=== PATIENT | male | born 2000 | race Caucasian/White ===

== ENCOUNTER 2021-11-23 17:45 | Inpatient (IN) | payer BC ==
[~2021-11-23] VITALS: Ht 185.4 cm; Wt 90.7 kg
[2021-11-23 17:48] VITALS: BP_SYST 130
--- NOTE | 2021-11-23 18:15 | NUR ---
Pt bib parent to ED, CC sharp upper abdominal pain R/t constipation last bm scant one hour ago. Pt is nauseated with 4 episodes of vomiting. No signs trauma, aaox4 skin even and unlabored. NAD.
[2021-11-23] MEDS ORDERED: ONDANSETRON HCL 4 MG/2 ML VIAL IVP ONE ×2 (18:45→20:00)
[2021-11-23] MEDS ORDERED: MORPHINE 2 MG/ML INJ. SYRINGE IVP ONE (18:45)
--- NOTE | 2021-11-23 18:45 | NUR ---
ER at bedside examining patient.
--- NOTE | 2021-11-23 18:50 | NUR ---
Patient transported to radiology for ultra sound via wc, accompanied by textile science technician.
[2021-11-23 19:11] LABS: BILIRUBIN,URINE NEGATIVE (NEGATIVE); BLOOD, URINE NEGATIVE (NEGATIVE); CLARITY/URINE CLEAR (CLEAR); COLOR,URINE YELLOW (YELLOW); GLUCOSE,URINE NEGATIVE (NEGATIVE); KETONES,URINE 1+ (NEGATIVE); LEUKOCYTE ESTERASE ,URINE NEGATIVE (NEGATIVE); NITRITE, URINE NEGATIVE (NEGATIVE); PH,URINE 6.5 (5.0-8.0); PROTEIN URINE 1+ (NEGATIVE); UROBILINOGEN,URINE 0.2 (0.2-1.0)
--- NOTE | 2021-11-23 19:21 | NUR ---
Pt returned from radiology nad, pain level 7/10 Morphine mildly effective.
--- NOTE | 2021-11-23 19:23 | NUR ---
RECIEVED REPORT FROM LOGAN TAPIA WILL ASSUME ALL CARE OF PATIENT AT THIS TIME
--- NOTE | 2021-11-23 19:23 | NUR ---
Endorsed pt care to YOBANY Veloz. Pt resting in hallway with a blanket.
[2021-11-23 19:34] LABS: BACTERIA,URINE FEW /HPF (None Seen); WBC,URINE 0-3 /HPF (0-3)
[2021-11-23 19:42] LABS: ALBUMIN 4.4 g/dL (3.4-4.8); CALCIUM 8.8 mg/dL (8.4-11.0); CREATININE 0.94 mg/dL (0.55-1.30); POTASSIUM 4.1 mmol/L (3.5-5.1); TOTAL BILIRUBIN 0.7 mg/dL (0.0-1.0)
[2021-11-23 19:46] LABS: BARBITURATE, URINE NEGATIVE (NEG <=200); BENZODIAZEPINE, URINE NEGATIVE (NEG <=150); CANNABINOID, URINE NEGATIVE (NEG <=50); COCAINE, URINE NEGATIVE (NEG <=150); METHAMPHETAMINES SCREEN,URINE NEGATIVE (NEG <=500); OPIATE, URINE NEGATIVE (NEG <=100); PHENCYCLIDINE SCREEN,URINE NEGATIVE (NEG <=25); UR TRICYCLIC ANTIDEPRESSANTS NEGATIVE (NEG <=300); URINE AMPHETAMINE NEGATIVE (NEG <=500); URINE METHADONE NEGATIVE (NEG <=200); URINE OXYCODONE SCREEN NEGATIVE (NEG <=100); URINE PROPOXYPHENE SCREEN NEGATIVE (NEG <=300)
[2021-11-23] MEDS ORDERED: MORPHINE 4 MG INJ. 4 MG/ML VIAL IVP ONE (20:00)
[2021-11-23] MEDS ORDERED: NACL 0.9% 1,000 ML IV ONE (20:00)
[2021-11-23] MEDS ORDERED: cefTRIAXone 1 GM IVPB PREMIX 50 ML IV ONE (20:00)
[2021-11-23 20:06] LABS: BASOPHILS # (AUTO) 0.1 K/uL (0.0-0.2); BASOPHILS % (AUTO) 0.4 % (0.0-2.0); HEMATOCRIT 44.9 % (36-54); LYMPHOCYTES % (AUTO) 5.4 % (20.5-51.5); MEAN CORPUSCULAR HEMOGLOBIN 29 pg (27-31); MEAN CORPUSCULAR HGB CONC 33 % (32-36); MEAN CORPUSCULAR VOLUME 88 fL (79.0-98.0); MONOCYTES % (AUTO) 5.1 % (1.7-9.3); NEUTROPHILS # (AUTO) 16.7 K/uL (1.8-7.7); NEUTROPHILS % (AUTO) 89.1 % (40.0-70.0); PLATELET COUNT (AUTO) 210 K/uL (130-430); RED BLOOD CELL COUNT(AUTO) 5.13 MIL/uL (4.2-6.2); RED CELL DISTRIBUTION WIDTH 13.6 % (9.0-15.0); WHITE BLOOD COUNT (AUTO) 18.7 K/uL (4.8-10.8)
--- NOTE | 2021-11-23 20:40 | NUR ---
Dr. Dodson on phone with Dr. Gaona regarding sx.
[2021-11-23] MEDS ORDERED: DOCUSATE SODIUM 100 MG/10 ML UDC PO PRN (21:15)
[2021-11-23] MEDS ORDERED: ZOLPIDEM TARTRATE 5 MG TABLET PO PRN (21:15)
[2021-11-23] MEDS ORDERED: MORPHINE 2 MG/ML INJ. SYRINGE IVP PRN (21:15)
[2021-11-23] MEDS: D5NS 1,000 ML IV SCH (21:15)
[2021-11-23] MEDS ORDERED: HYDROcodone/ACETAMIN 7.5-325 MG TAB PO PRN (21:15)
[2021-11-23] MEDS ORDERED: guaiFENesin/DEXTROMETHORPHAN 10 ML UDC PO PRN (21:15)
--- NOTE | 2021-11-23 21:35 | NUR ---
Admit bed requested Patient will be admitted to care of Dr. Healy. Admitted to med surg unit. Diagnosis appendicitis Inpatient (Yes or No) yes Observation (Yes or No) no Orientation concerns or request close to nursing station (Yes or No) no Covid Status neg On vent or bipap no Isolation requirements no Needs a sitter no From Home (Yes or if No enter name of facility) yes Requires Dialysis (Yes or No) no Med Rec Completed (Yes of No) yes
--- NOTE | 2021-11-23 22:57 | NUR ---
Patient will be admitted to care of dr. neal. [facility] Will go to room 117b. Complete and up to date summary report printed. Transfer to [facility]. IV present no sign or symptom of infiltration.
[2021-11-23 23:23] LABS: INR 1.1 (0.80-1.20)
[2021-11-23 23:57] LABS: FREE T4 (FREE THYROXINE) 1.2 ng/dl (0.8-1.5); PHOSPHORUS 3.3 mg/dL (2.7-4.5); THYROID STIMULATING HORMONE 0.99 uIu/mL (0.36-3.74)
[2021-11-24] MEDS: MORPHINE 4 MG INJ. 4 MG/ML VIAL IVP PRN ×3 (01:42→21:09)
[2021-11-24 03:29] VITALS: BP_SYST 130
--- NOTE | 2021-11-24 03:48 | NUR ---
PT ARRIVED ON UNIT FROM ED. PT VSS. PT DENIED PAIN UPON ARRIVAL BUT LATER C/O ABDOMINAL PAIN MORPHINE 3MG PRN GIVEN WITH POSITIVE EFFECT. PT IS NPO UNTIL MD SEE AND EVALUATE PT. PT CONTINUE ON IV MAINTENANCE AND PRN MORPHINE. PATIENT SHOWS NO SIGNS OF RESPIRATORY DISTRESS. PT SLEEPING AND MOTHER SPENDING NIGHT WITH PATIENT.
[2021-11-24 03:53] VITALS: BP_SYST 130
--- NOTE | 2021-11-24 04:21 | NUR ---
CONSULTATION PAGED/CALLED Reason for Consultation: APPENDITIS Person Who was Notified VY Consulting Physician: NANDO YOO Gas Fitter Specialty: Ordering Physician: ALIZE
[2021-11-24] MEDS: D5NS 1,000 ML IV SCH ×3 (06:29→21:08)
[2021-11-24 06:39] LABS: HEMATOCRIT 40.4 % (36-54); HEMOGLOBIN 14.1 g/dL (14.0-18.0); MEAN CORPUSCULAR HEMOGLOBIN 30 pg (27-31); MEAN CORPUSCULAR HGB CONC 35 % (32-36); MEAN CORPUSCULAR VOLUME 86 fL (79.0-98.0); PLATELET COUNT (AUTO) 193 K/uL (130-430); RED BLOOD CELL COUNT(AUTO) 4.69 MIL/uL (4.2-6.2); RED CELL DISTRIBUTION WIDTH 13.7 % (9.0-15.0); WHITE BLOOD COUNT (AUTO) 19.5 K/uL (4.8-10.8)
[2021-11-24 06:56] LABS: CALCIUM 8.9 mg/dL (8.4-11.0); CREATININE 0.87 mg/dL (0.55-1.30); POTASSIUM 3.7 mmol/L (3.5-5.1)
--- NOTE | 2021-11-24 07:24 | NUR ---
OPENING NOTE RECEIVED
--- NOTE | 2021-11-24 07:30 | NUR ---
OPENING NOTES KEPT NPO FOR POSSIBLE SURGERY TODAY. WAITING (SURGEON) TO SEE PT. IV FLUIDS AND ANTIBIOTICS. DENIES ABDOMINAL PAIN AT THIS TIME. ENCOURAGED PT TO CALL FOR HELP.
[2021-11-24 08:00] VITALS: BP_SYST 126
[2021-11-24 08:12] LABS: LYMPHOCYTES % (MANUAL) 6 % (20-46)
[2021-11-24 08:13] LABS: BASOPHILS % (MANUAL) 1 % (0-2); EOSINOPHILS % (MANUAL) 1 % (0-7); MONOCYTES % (MANUAL) 8 % (0-11)
[2021-11-24] MEDS: PANTOPRAZOLE SODIUM 40 MG TAB PO SCH (08:30)
[2021-11-24] MEDS: ONDANSETRON HCL 4 MG/2 ML VIAL IVP PRN (08:30)
[2021-11-24] MEDS ORDERED: POTASSIUM CHLORIDE 20 MEQ TAB.PRT.SR PO PRN (09:00)
--- NOTE | 2021-11-24 09:30 | NUR ---
MD FERNANDES CAME TO SEE PT WITH NEW IV ANTIBIOTIC ORDER.
[2021-11-24] MEDS: CLINDAMYCIN 900 MG in NS 50 ML IV SCH ×3 (10:37→21:09)
[2021-11-24 12:00] VITALS: BP_SYST 134
--- NOTE | 2021-11-24 12:44 | NUR ---
MD ESPINAL AT BEDSIDE ASSESSING PT.
[2021-11-24 16:00] VITALS: BP_SYST 131
--- NOTE | 2021-11-24 18:24 | NUR ---
CLOSING NOTE PT CONTINUALLY KEPT NPO WAITING FOR SURGEON TO SCHEDULE THE SURGERY DATE. FAMILY AT BEDSIDE THROUGHOUT THE SHIFT. CONTINUE IV ANTIBIOTICS. PROVIDED PAIN MANAGEMENT X1 WITH EFFECTIVE RESULT.
[2021-11-24 19:50] VITALS: BP_SYST 129
--- NOTE | 2021-11-24 19:50 | NUR ---
Opening notes Pt AAOx4, VSS, pt states pain is tolerable at this time. Pt maintained NPO. IVF infusing at ordered rate L. AC20G clear and patent. Call light within reach. Family at bedside. Awaiting order for surgery. To monitor.
[2021-11-24] MEDS ORDERED: cefTRIAXone 1 GM VIAL ONE (21:01)
[2021-11-24] MEDS: cefTRIAXone 1 GM in D5W 50 ML IV SCH (22:15)
[2021-11-25 00:20] VITALS: BP_SYST 146
[2021-11-25] MEDS: MORPHINE 4 MG INJ. 4 MG/ML VIAL IVP PRN ×2 (00:24→03:40)
--- NOTE | 2021-11-25 00:50 | NUR ---
Consent signed Pt alert, awake, and signed consent. Maintained NPO. Family member at bedside and informed that Charge nurse verified with House sup the time of surgery is 0730AM for Lap appy possible open.
[2021-11-25] MEDS: D5NS 1,000 ML IV SCH ×3 (02:55→16:52)
[2021-11-25] MEDS: CLINDAMYCIN 900 MG in NS 50 ML IV SCH ×3 (05:52→21:09)
--- NOTE | 2021-11-25 06:35 | NUR ---
Closing notes Pt alert, awake, no s/s distress noted. VSS. Pt had CHG bath. IVF infusing at ordered rate L. AC 20G and IV antibiotics administered. Family at bedside. Safety maintained. To endorse to AM nurse.
[2021-11-25 06:40] LABS: HEMATOCRIT 41.4 % (36-54); HEMOGLOBIN 14.3 g/dL (14.0-18.0); MEAN CORPUSCULAR HEMOGLOBIN 30 pg (27-31); MEAN CORPUSCULAR HGB CONC 35 % (32-36); MEAN CORPUSCULAR VOLUME 87 fL (79.0-98.0); PLATELET COUNT (AUTO) 182 K/uL (130-430); RED BLOOD CELL COUNT(AUTO) 4.76 MIL/uL (4.2-6.2); RED CELL DISTRIBUTION WIDTH 13.8 % (9.0-15.0); WHITE BLOOD COUNT (AUTO) 18.7 K/uL (4.8-10.8)
[2021-11-25 07:01] LABS: CALCIUM 8.8 mg/dL (8.4-11.0); CREATININE 1.15 mg/dL (0.55-1.30); POTASSIUM 4.1 mmol/L (3.5-5.1)
[2021-11-25] MEDS ORDERED: ePHEDrine sulfate 50 MG/ML VIAL ONE (07:20)
[2021-11-25] MEDS ORDERED: MIDAZOLAM HCL 2 MG/2 ML VIAL (VERSED) ONE (07:20)
[2021-11-25] MEDS ORDERED: HYDROmorphone 2 MG/ML VIAL ONE (07:20)
[2021-11-25] MEDS ORDERED: SEVOFLURANE 15 MIN GAS INH ONE (07:20)
[2021-11-25] MEDS ORDERED: ONDANSETRON HCL 4 MG/2 ML VIAL ONE (07:20)
[2021-11-25] MEDS ORDERED: ROCURONIUM BROMIDE 10 MG/ML (ZEMURON) ONE (07:20)
[2021-11-25] MEDS ORDERED: DEXAMETHASONE SOD PHOSPHATE 4 MG/ML VIAL ONE (07:20)
[2021-11-25] MEDS ORDERED: BUPIVACAINE /PF 0.25% 30 ML VIAL INJ ONE (07:20)
[2021-11-25] MEDS ORDERED: LIDOCAINE/EPI MPF 1%1:200000 30 ML VIAL ONE (07:20)
[2021-11-25] MEDS ORDERED: LR 1,000 ML IV.SOLN IV ONE (07:20)
[2021-11-25] MEDS ORDERED: SUGAMMADEX SODIUM 200 MG/2 ML VIAL IV ONE (07:20)
[2021-11-25] MEDS ORDERED: PROPOFOL 200MG/ 20ML VIAL (DIPRIVAN) IV ONE (07:20)
[2021-11-25] MEDS ORDERED: METOCLOPRAMIDE HCL 10 MG/2 ML VIAL ONE (07:20)
[2021-11-25] MEDS ORDERED: NS IRRIG SOLN 1000 ML IR ONE (07:20)
--- NOTE | 2021-11-25 07:20 | NUR ---
OR nurses here to pickle pumper pt for surgery.
[2021-11-25 07:45] LABS: EOSINOPHILS % (MANUAL) 1 % (0-7); LYMPHOCYTES % (MANUAL) 7 % (20-46)
[2021-11-25] MEDS ORDERED: HYDROmorphone 1 MG/ML INJ. CARTRIDGE IM PRN (07:45)
[2021-11-25 08:00] VITALS: BP_SYST 124
[2021-11-25 08:23] LABS: ATYPICAL LYMPHOCYTES % 0 % (0-0); BASOPHILS % (MANUAL) 1 % (0-2); MONOCYTES % (MANUAL) 8 % (0-11)
[2021-11-25] MEDS ORDERED: HYDROmorphone 2 MG/ML VIAL IVP PRN (08:30)
[2021-11-25] MEDS ORDERED: METOCLOPRAMIDE HCL 10 MG/2 ML VIAL IVP PRN (08:30)
[2021-11-25] MEDS ORDERED: ONDANSETRON HCL 4 MG/2 ML VIAL IVP PRN (08:30)
[2021-11-25] MEDS ORDERED: HYDROmorphone 1 MG/ML INJ. CARTRIDGE IVP PRN ×3 (08:30→16:00)
[2021-11-25] MEDS ORDERED: NALOXONE HCL 0.4 MG/ML AMP (NARCAN) IVP PRN ×2 (08:30)
[2021-11-25] MEDS: PANTOPRAZOLE SODIUM 40 MG TAB PO SCH (09:00)
[2021-11-25 16:00] VITALS: BP_SYST 120
[2021-11-25 19:50] VITALS: BP_SYST 118
--- NOTE | 2021-11-25 19:50 | NUR ---
PM ASSESSMENT; -Pt is a/ox4, resting in bed comfortably. Pt denies any chest pain,sob,or any acute distress. S/P lap append with x3 puncture sites w/ duobond, no bleeding noted. IV site of LAC patent,no s/s any infiltration noted. IVF D5NS @ 135ml/hr. Discussed poc,all safety measures, pain mgmt, and inform nurse if experiencing any pain or any acute distress, pt verbalized understanding. Girlfriend is at bedside. Call light w/in reach, side rails x2. Cont to monitor pt.
[2021-11-25] MEDS ORDERED: cefTRIAXone 1 GM IVPB PREMIX 50 ML IV ONE (20:50)
[2021-11-25] MEDS: cefTRIAXone 1 GM in D5W 50 ML IV SCH (21:07)
--- NOTE | 2021-11-25 21:07 | NUR ---
ROUNDS; -Pt is resting in bed comfortably. Pt denies any chest pain,pain,sob, or any acute distress. Mother and girlfriend are at bedside. All safety measures in place. Call light w/in reach. Cont to monitor pt.
[2021-11-26 00:12] VITALS: BP_SYST 114
[2021-11-26] MEDS: ACETAMINOPHEN 500 MG TABLET PO PRN ×2 (00:12→23:53)
--- NOTE | 2021-11-26 00:12 | NUR ---
ROUNDS; -Pt is c/o abd pain, gave Tylenol 500mg po. Pt is c/o constipation but refused to receive medication this time. IVF infusing well. Will reassess pain level w/in an hour. Girlfriend is at bedside. All safety measures in place. Call light w/in reach. Cont to monitor pt.
--- NOTE | 2021-11-26 02:10 | NUR ---
ROUNDS; -Pt requested Ambien po for sleeping. Pt denies any chest pain,sob,or any acute distress. Girlfriend is at bedside. Call light w/in reach. Cont to monitor pt.
[2021-11-26] MEDS: CLINDAMYCIN 900 MG in NS 50 ML IV SCH ×3 (05:27→22:51)
[2021-11-26] MEDS: D5NS 1,000 ML IV SCH ×4 (05:27→23:56)
--- NOTE | 2021-11-26 05:27 | NUR ---
ROUNDS; -Pt is still asleep,easily awakes upon making rounds. Pt denies any chest pain,sob,or any acute distress.IVF infusing well, Cleocin IVPB given. No girlfriend or family is at bedside. Call light w/in reach. Cont to monitor pt.
--- NOTE | 2021-11-26 06:32 | NUR ---
CLOSING NOTES; Pt is resting in bed comfortably. S/P lap append with x3 puncture sites w/ duobond, no bleeding noted. IV site of LAC patent,no s/s any infiltration noted. IVF D5NS @ 135ml/hr. No visitor is at bedside. Call light w/in reach, side rails x2. Will endorse to next nurse to cont care.
[2021-11-26 06:54] LABS: BASOPHILS # (AUTO) 0.1 K/uL (0.0-0.2); BASOPHILS % (AUTO) 0.3 % (0.0-2.0); HEMATOCRIT 36.5 % (36-54); HEMOGLOBIN 12.9 g/dL (14.0-18.0); LYMPHOCYTES # (AUTO) 1.4 K/uL (1.0-5.5); LYMPHOCYTES % (AUTO) 9.1 % (20.5-51.5); MEAN CORPUSCULAR HEMOGLOBIN 30 pg (27-31); MEAN CORPUSCULAR HGB CONC 35 % (32-36); MEAN CORPUSCULAR VOLUME 86 fL (79.0-98.0); MONOCYTES # (AUTO) 1.4 K/uL (0.0-1.0); MONOCYTES % (AUTO) 9.3 % (1.7-9.3); NEUTROPHILS # (AUTO) 12.6 K/uL (1.8-7.7); NEUTROPHILS % (AUTO) 81.3 % (40.0-70.0); PLATELET COUNT (AUTO) 162 K/uL (130-430); RED BLOOD CELL COUNT(AUTO) 4.23 MIL/uL (4.2-6.2); RED CELL DISTRIBUTION WIDTH 13.6 % (9.0-15.0); WHITE BLOOD COUNT (AUTO) 15.5 K/uL (4.8-10.8)
[2021-11-26 07:00] VITALS: BP_SYST 124
[2021-11-26 07:59] LABS: CALCIUM 8.5 mg/dL (8.4-11.0); CREATININE 0.89 mg/dL (0.55-1.30)
[2021-11-26 08:00] VITALS: BP_SYST 124
[2021-11-26] MEDS: PANTOPRAZOLE SODIUM 40 MG TAB PO SCH (09:18)
[2021-11-26] MEDS ORDERED: LEVO750T64 PO (10:34)
[2021-11-26] MEDS ORDERED: IBUP-1969 PO (10:35)
[2021-11-26 16:00] VITALS: BP_SYST 128
[2021-11-26 20:00] VITALS: BP_SYST 142
[2021-11-26] MEDS: cefTRIAXone 1 GM in D5W 50 ML IV SCH (20:00)
--- NOTE | 2021-11-26 20:00 | NUR ---
OPENING NOTES Pt AAOx4, in bed with mom at bedside. Pt states pain is 5/10. Pt reports having no food today after getting sick at breakfast. pt has L. A/C 20G clear and patent. Call light within reach all safety measures in place. Will continue to monitor
--- NOTE | 2021-11-26 21:30 | NUR ---
NAUSEA PT WAS TRYING TO EAT AND C/O NAUSEA. ZOFRAN GIVEN
--- NOTE | 2021-11-26 22:15 | NUR ---
ABD PAIN PT HAS PAIN 7/10 NORCO WAS GIVEN
[2021-11-26] MEDS: ONDANSETRON HCL 4 MG/2 ML VIAL IVP PRN (22:51)
[2021-11-26] MEDS: HYDROcodone/ACETAMIN 5-325 MG TAB (NORCO/ VICODIN) PO PRN (22:51)
[2021-11-27 01:21] VITALS: BP_SYST 127
--- NOTE | 2021-11-27 01:30 | NUR ---
PT CARE TRANSFER REPORT GIVEN TO SENIA
[2021-11-27] MEDS: HYDROcodone/ACETAMIN 5-325 MG TAB (NORCO/ VICODIN) PO PRN (04:35)
[2021-11-27] MEDS: CLINDAMYCIN 900 MG in NS 50 ML IV SCH (06:03)
[2021-11-27] MEDS: D5NS 1,000 ML IV SCH (06:06)
[2021-11-27 07:36] LABS: BASOPHILS % (AUTO) 0.3 % (0.0-2.0); EOSINOPHILS # (AUTO) 0.1 K/uL (0.0-0.4); EOSINOPHILS % (AUTO) 0.8 % (0.0-4.0); HEMATOCRIT 38.1 % (36-54); HEMOGLOBIN 13.1 g/dL (14.0-18.0); LYMPHOCYTES # (AUTO) 1.5 K/uL (1.0-5.5); LYMPHOCYTES % (AUTO) 11.8 % (20.5-51.5); MEAN CORPUSCULAR HEMOGLOBIN 30 pg (27-31); MEAN CORPUSCULAR HGB CONC 34 % (32-36); MEAN CORPUSCULAR VOLUME 87 fL (79.0-98.0); MONOCYTES # (AUTO) 1.7 K/uL (0.0-1.0); MONOCYTES % (AUTO) 13.8 % (1.7-9.3); NEUTROPHILS # (AUTO) 9.2 K/uL (1.8-7.7); NEUTROPHILS % (AUTO) 73.3 % (40.0-70.0); PLATELET COUNT (AUTO) 196 K/uL (130-430); RED BLOOD CELL COUNT(AUTO) 4.36 MIL/uL (4.2-6.2); RED CELL DISTRIBUTION WIDTH 13.7 % (9.0-15.0); WHITE BLOOD COUNT (AUTO) 12.6 K/uL (4.8-10.8)
[2021-11-27 08:03] VITALS: BP_SYST 125
[2021-11-27 08:06] LABS: CALCIUM 8.7 mg/dL (8.4-11.0); CREATININE 0.86 mg/dL (0.55-1.30); POTASSIUM 3.6 mmol/L (3.5-5.1)
[2021-11-27] MEDS: PANTOPRAZOLE SODIUM 40 MG TAB PO SCH (08:38)
[2021-11-27 09:08] VITALS: BP_SYST 126
--- NOTE | 2021-11-27 10:38 | NUR ---
0730 Pt. in bed, sleeping, no acute distress, vss 0800 Pt. encouraged to eat breakfast, to go home today 0930 Pt. signed dc instructions and belongings list, call to ER and security regarding pt. missing black [place] shorts that were taken off when he arrived to hospital, no shorts in lost and found, pt. made aware and is o.k with not having his shorts. Pt. verbalized understanding of dc instructions, diet and follow up appt. with surgeon in 3-4 weeks, given md phone number to make appt. Rx sent to his pharmacy for steel pickler, pt. verbalized importance of taking all of his antibiotics. 1030 Pt. left via wc, no distress noted, no fever or pain, aaox4. Pt. took out own heplock. Left in private auto with family.
== END 2021-11-27 10:30 | disposition home or self-care (01) | DRG 710 ==
LOC: SED 17:45 → SMU 21:17
PROVIDERS: ADMIT Family Medicine; ATTEND Family Medicine
PROC: 0DTJ4ZZ Resection of Appendix, Percutaneous Endoscopic Approach (ICD-10-PCS; principal; 2021-11-25 07:25)
DX: A41.9 Sepsis, unspecified organism (principal); E87.1 Hypo-osmolality and hyponatremia; Z20.822 Contact with and (suspected) exposure to COVID-19; E86.0 Dehydration; Z79.899 Other long term (current) drug therapy; Z88.0 Allergy status to penicillin; K35.80 Unspecified acute appendicitis
CPT/HCPCS: 36415; 71045; 76376; 80048; 80053; 80061; 80307; 81000; 82150; 83036; 83605; 83690; 83735; 83880; 84100; 84439; 84443; 85007; 85025; 85027; 85610-TC; 85730-TC; 87040; 87081; 88304; 93005; 96365; 96375; 96376; 99291; C1727; J0696; J1100; J1170; J2270; J2405; J2704; J2765; J3465; J3490; J7120